=== PATIENT | female | born 1975 | race Caucasian/White ===

== ENCOUNTER 2017-09-17 14:52 | Emergency (ER) | payer OTHER ==
[2017-09-17 14:59] VITALS: BP 101/67
[2017-09-17] MEDS ORDERED: DEXAMETHASONE 10 MG/ML VIAL PO STA (15:12)
--- NOTE | 2017-09-17 15:15 | ED Physician Documentation ---
PD HPI URI - Stated complaint Stated Complaint: SORE THROAT - Chief complaint Chief Complaint: Heent - History obtained from History obtained from: Patient, Family - History of Present Illness Timing - onset: How many days ago (3) Timing duration: Days (3) Timing details: Gradual onset, Still present Associated symptoms: Ear pain, Nasal congestion, Rhinorrhea, Sore throat, Swollen nodes, Dry cough. No: Fever Contributing factors: No: Sick contact Improves by: Medication Similar symptoms before: Has not had sx before Recently seen: Not recently seen - Additional information Additional information: Previously healthy 42-year-old female has developed a cough and congestion about 3 days ago she is a sore throat and swollen lymph nodes is a bit of a cough as well. Review of Systems Constitutional: denies: Fever Eyes: denies: Decreased vision Ears: reports: Ear pain Nose: reports: Rhinorrhea / runny nose, Congestion Throat: reports: Sore throat Cardiac: denies: Chest pain / pressure, Palpitations Respiratory: reports: Cough. 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 - Present Medications Home Medications: Ambulatory Orders Medication Instructions Recorded Confirmed Azithromycin [Zithromax] 250 mg PO DAILY #6 tablet 09/17/17 - Allergies Allergies/Adverse Reactions: Allergies Allergy/AdvReac Type Severity Reaction Status Date / Time No Known Drug Allergies Allergy Verified 09/17/17 14:59 - Social History Does the pt smoke?: No Smoking Status: Never smoker Does the pt drink ETOH?: Yes Does the pt have substance abuse?: No PD ED PE NORMAL - Vitals Vital signs reviewed: Yes (normal ) - General General: Alert and oriented X 3, No acute distress, Well developed/nourished - HEENT HEENT: Atraumatic, PERRL, EOMI, Other (There is minimal inflamation of the right TM along the umbo and more inflammation on the left , pharynx is with 2+ tonsils. 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, No motor deficit, No sensory deficit, Normal speech Eye Opening: Spontaneous Motor: Obeys Commands Verbal: Oriented GCS Score: 15 - Psych Psych: Normal mood, Normal affect Results - Vitals Vitals: Vital Signs - 24 hr 09/17/17 14:57 Temperature 36.9 C Heart Rate 73 Respiratory 18 Rate Blood Pressure 101/67 O2 Saturation 98 Oxygen O2 Source Room air - Labs Labs: Laboratory Tests 09/17/17 15:08 Group A Strep Rapid Negative PD MEDICAL DECISION MAKING - ED course Complexity details: reviewed results, re-evaluated patient, considered differential, d/w patient, d/w family ED course: 42-year-old female with a sore throat cough has otitis on examination. She is administered dexamethasone 10 mg orally and we will put her on some azithromycin. Departure - Departure Disposition: 01 Home, Self Care Clinical Impression: Otitis media Qualifiers: Otitis media type: suppurative Chronicity: acute Laterality: bilateral Recurrence: not specified as recurrent Spontaneous tympanic membrane rupture: without spontaneous rupture Qualified Code(s): H66.003 - Acute suppurative otitis media without spontaneous rupture of ear drum, bilateral Condition: Stable Instructions: ED Otitis Media Acute Adult Follow-Up: Your, doctor [Other] Prescriptions: Azithromycin [Zithromax] 250 mg PO DAILY #6 tablet
== END 2017-09-17 16:11 | disposition home or self-care (01) ==
LOC: ED 14:52
DX: H66.003 Acute suppurative otitis media without spontaneous rupture of ear drum, bilateral (principal); J02.9 Acute pharyngitis, unspecified; R05 Cough
CPT/HCPCS: 87070; 87430; 99283

== ENCOUNTER 2019-01-07 10:12 | Emergency (ER) | payer OTHER ==
[2019-01-07 10:22] VITALS: BP 100/70
--- NOTE | 2019-01-07 11:19 | XRAY Report ---
Reason: L knee pain Procedure Date: 01/07/2019 Accession Number: [id number] / [id number] Procedure: XR - Knee 3 View LT CPT Code: FULL RESULT: EXAM: LEFT KNEE RADIOGRAPHY EXAM DATE: 01/07/2019 10:24 AM. CLINICAL HISTORY: L knee pain. COMPARISON: None. TECHNIQUE: 3 views. FINDINGS: Bones: Normal. No fractures or bone lesions. Joints: Trace joint effusion is seen. No subluxation. Soft Tissues: Normal. No soft tissue swelling. IMPRESSION: 1. No evidence for acute fracture or dislocation of the left knee. 2. Trace joint effusion is seen. RADIA
--- NOTE | 2019-01-07 11:43 | ED Physician Documentation ---
PD HPI LOWER EXT INJURY - Stated complaint Stated Complaint: L KNEE PX - Chief complaint Chief Complaint: Ext Problem - History obtained from History obtained from: Patient - History of Present Illness PD HPI LOW EXT INJURY LOCATION: Left, Knee Type of injury: Fall (fell down some steps, landing onto left knee but also with knee bent under/behind her. Pain with ROM and with walking. Pain mainly anterior and medial. No effusion. 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 : None HEENT: None Psych: None Musculoskeletal: None Derm: None - Past Surgical History 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 - Present Medications Home Medications: Ambulatory Orders Medication Instructions Recorded Confirmed Azithromycin [Zithromax] 250 mg PO DAILY #6 tablet 09/17/17 - Allergies Allergies/Adverse Reactions: Allergies Allergy/AdvReac Type Severity Reaction Status Date / Time No Known Drug Allergies Allergy Verified 09/17/17 14:59 - Social History Does the pt smoke?: Yes Smoking Status: Current every day smoker Does the pt drink ETOH?: Yes ETOH Use: Wine Does the pt have substance abuse?: No - POLST Patient has POLST: No PD ED PE NORMAL - Vitals Vital signs reviewed: Yes - General General: Alert and oriented X 3, Well developed/nourished - Derm Derm: Normal color, Warm and dry - Extremities Extremities: Other (left knee with tenderness medially and just lateral to kneecap. No pain nor laxity with cruciate testing. Medially hurting with valgus stress. No laxity. No effusion. ) - Neuro Neuro: No motor deficit, No sensory deficit Results - Vitals Vitals: Vital Signs - 24 hr 01/07/19 10:18 Temperature 36.4 C L Heart Rate 75 Respiratory 20 Rate Blood Pressure 100/70 O2 Saturation 100 Oxygen O2 Source Room air - Rads (name of study) left knee Radiology: Prelim report reviewed (no fractures), See rad report PD MEDICAL DECISION MAKING - ED course Complexity details: reviewed results, considered differential (knee exam seems c/w MCL strain. Less likely meniscal. ), d/w patient Departure - Departure Disposition: 01 Home, Self Care Clinical Impression: Fall down steps Qualifiers: Encounter type: initial encounter Qualified Code(s): W10.8XXA - Fall (on) (from) other stairs and steps, initial encounter Knee MCL sprain Qualifiers: Encounter type: initial encounter Laterality: left Qualified Code(s): S83.412A - Sprain of medial collateral ligament of left knee, initial encounter Knee contusion Qualifiers: Encounter type: initial encounter Laterality: left Qualified Code(s): S80.02XA - Contusion of left knee, initial encounter Condition: Stable Record reviewed to determine appropriate education?: Yes Instructions: ED Sprain Knee Follow-Up: Annie Crowley PA [Primary Care Provider] - [facility] [Provider Group] Comments: Your x-ray appears normal without any bony abnormality. Your injury is likely a combination of some bruising at the area of impact but may also be some strain of the MCL (medial collateral ligament). Less likely it would be some meniscal injury. I would anticipate improvement over the next week or so with guarded motion using a knee brace. Add crutches if needed for partial weightbearing for comfort but progressing weightbearing as okay with healing of these injuries. Use some anti-inflammatories such as naproxen or ibuprofen 2-3 times a day for the next week. Add Tylenol if needed for pain. Recheck if not improving well over the next week. He may even be 2 to 3 weeks before he have complete activity without any discomfort. Continue the knee brace for as long as it still hurting with activity. Discharge Date/Time: 01/07/19 12:49
[2019-01-07] MEDS ORDERED: IBUPROFEN 600 MG TABLET PO STA (12:34)
== END 2019-01-07 12:49 | disposition home or self-care (01) ==
LOC: ED 10:12
DX: S83.412A Sprain of medial collateral ligament of left knee, initial encounter (principal); W10.9XXA Fall (on) (from) unspecified stairs and steps, initial encounter; Y93.9 Activity, unspecified; Y92.009 Unspecified place in unspecified non-institutional (private) residence as the place of occurrence of the external cause; F17.200 Nicotine dependence, unspecified, uncomplicated
CPT/HCPCS: 99282; 99283

== ENCOUNTER 2019-04-05 12:28 | Outpatient (CLI) | payer OTHER ==
--- NOTE | 2019-04-05 13:41 | MRI Report ---
Reason: DERANGEMENT INTERNAL KNEE NOS Procedure Date: 04/05/2019 Accession Number: [id number] / [id number] Procedure: MRI - Knee LT W/O CPT Code: Final Report FULL RESULT: EXAM: LEFT KNEE MRI WITHOUT CONTRAST EXAM DATE: 04/05/2019 01:18 PM. CLINICAL HISTORY: Left knee pain. Previous fall. COMPARISON: KNEE 3 VIEW LT 01/07/2019 10:23 AM. TECHNIQUE: Multiplanar, multisequence T1-weighted and fluid-sensitive sequences of the knee without contrast. Other: None. FINDINGS: Bones and articular cartilage: No acute fracture or bone lesions. Articular cartilage is within normal limits. Patella deysi is present. Small subcentimeter subcortical cysts at the anteromedial aspect of the lateral tibial plateau. Medial Meniscus: The medial meniscus is intact. Lateral Meniscus: The lateral meniscus is intact. Cruciate Ligaments: The anterior and posterior cruciate ligaments are intact. Collateral Ligaments: The medial collateral and lateral collateral ligamentous structures are intact. Tendons: The quadriceps, patellar, semimembranosus, and popliteus tendons are unremarkable. Musculature: No edema or fatty atrophy. Other: No effusion. No popliteal cyst. No loose bodies. The medial and lateral retinacula are intact. The subcutaneous tissues and fat pads are unremarkable. IMPRESSION: 1. Small subcortical cysts at the lateral tibial plateau. 2. Patella deysi. 3. No ligament or meniscal tear. RADIA
== END 2019-04-05 12:29 | disposition home or self-care (01) ==
LOC: DI 12:28
PROVIDERS: ATTEND Physician Assistant
DX: M85.662 Other cyst of bone, left lower leg (principal); M22.8X2 Other disorders of patella, left knee

== ENCOUNTER 2020-07-26 11:35 | Emergency (ER) | payer OTHER ==
--- NOTE | 2020-07-26 12:28 | ED Physician Documentation ---
History of Present Illness - Stated complaint Stated Complaint: LFT FOOT INJURY - Chief complaint Chief Complaint: General - History obtained from History obtained from: Patient - History of Present Illness Timing: Today Pain level max: 6 Pain level now: 5 - Additonal information Additional information: Patient is a 45-year-old female who presents to the emergency department after rolling her left ankle today. This was in her driveway. Worse with walking, better with rest. She denies any other injuries to me. She states that her right knee and left hip were hurting but no longer hurt. No head, neck, back pain. 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 - Present Medications Home Medications: Ambulatory Orders Medication Instructions Recorded Confirmed Azithromycin [Zithromax] 250 mg PO DAILY #6 tablet 09/17/17 - Allergies Allergies/Adverse Reactions: Allergies Allergy/AdvReac Type Severity Reaction Status Date / Time seasonal Allergy Respiratory Uncoded 07/26/20 11:47 - Social History Does the pt smoke?: Yes Smoking Status: Current every day smoker Does the pt drink ETOH?: Yes Does the pt have substance abuse?: Yes Substance Use and Type: Marijuana - Immunizations Immunizations are current?: Yes - POLST Patient has POLST: No PD ED PE NORMAL - Vitals Vital signs reviewed: Yes - General General: Alert and oriented X 3, No acute distress - HEENT HEENT: Moist mucous membranes - Neck Neck: Supple, no meningeal sign - Derm Derm: Warm and dry - Extremities Extremities: Other (L ankle - Tender to palpation over the lateral malleolus. No swelling. No bruising. No tenderness over the remainder of the foot, proximal tibia/fibula. No other tenderness about the ankle. Neurovascularly intact) - Neuro Neuro: Alert and oriented X 3 - Psych Psych: Normal mood, Normal affect Results - Vitals Vitals: Vital Signs - 24 hr 07/26/20 11:41 Temperature 36.3 C L Heart Rate 88 Respiratory 18 Rate Blood Pressure 136/74 H O2 Saturation 99 Oxygen O2 Source Room air - Rads (name of study) L ankle xray Radiology: Prelim report reviewed, EMP read contemporaneously, See rad report (No acute fractures or dislocation.) PD MEDICAL DECISION MAKING - ED course Complexity details: reviewed results, re-evaluated patient, considered differential, d/w patient ED course: No acute findings on x-ray. Patient with an ankle sprain. Placed on an air splint for comfort. Declines crutches. Declines pain medication here or for home. Patient counseled regarding signs and symptoms for which I believe and urgent re-evaluation would be necessary. Patient with good understanding of and agreement to plan and is comfortable going home at this time This document was made in part using voice recognition software. While efforts are made to proofread this document, sound alike and grammatical errors may occur. Departure - Departure Disposition: 01 Home, Self Care Clinical Impression: Left ankle sprain Qualifiers: Encounter type: initial encounter Involved ligament of ankle: unspecified ligament Qualified Code(s): S93.402A - Sprain of unspecified ligament of left ankle, initial encounter Condition: Good Instructions: ED Sprain Ankle Follow-Up: Annie Crowley PA-C [Primary Care Provider] - Within 1 week Comments: Thankfully your x-ray does not show any acute abnormalities today. This should heal on its own. Use the air splint as needed for comfort. Return if you worsen.
--- NOTE | 2020-07-26 12:47 | XRAY Report ---
PROCEDURE: Ankle 3 View LT INDICATIONS: fall, L ankle pain TECHNIQUE: 3 views of the ankle were acquired. COMPARISON: None FINDINGS: Bones: No acute fractures or dislocations. Tiny well-corticated ossicle at the medial malleolus. An kle mortise is normally aligned. No suspicious bony lesions. Soft tissues: No tibiotalar joint effusion. Achilles tendon appears normal. IMPRESSION: No acute fracture or dislocation. Suspect prior traumatic injury at the medial malleolus. Reviewed by: Quinn Walters MD on 07/26/2020 11:46 AM CH[facility]STAL Approved by: Quinn Walters MD on 07/26/2020 11:46 AM CHRYSTAL Station ID: [id number]
[2020-07-26 13:12] VITALS: BP 114/88
== END 2020-07-26 13:18 | disposition home or self-care (01) ==
LOC: ED 11:35
DX: S93.402A Sprain of unspecified ligament of left ankle, initial encounter (principal); X50.1XXA Overexertion from prolonged static or awkward postures, initial encounter; Y92.007 Garden or yard of unspecified non-institutional (private) residence as the place of occurrence of the external cause; F17.200 Nicotine dependence, unspecified, uncomplicated
CPT/HCPCS: 99282; 99283

== ENCOUNTER 2020-10-14 12:41 | Outpatient (CLI) | payer OTHER ==
--- NOTE | 2020-10-14 14:58 | XRAY Report ---
PROCEDURE: Ankle 3 View LT INDICATIONS: LEFT ANKLE SPRAIN TECHNIQUE: 3 views of the ankle were acquired. COMPARISON: None FINDINGS: Bones: No fractures or dislocations. Ankle mortise is normally aligned. No suspicious bony lesions . Soft tissues: No tibiotalar joint effusion. Achilles tendon appears normal. IMPRESSION: No trauma found. Reviewed by: Tej Teixeira MD on 10/14/2020 2:56 PM PDT Approved by: Tej Teixeira MD on 10/14/2020 2:56 PM PDT Station ID: [id number]
== END 2020-10-14 12:42 | disposition home or self-care (01) ==
LOC: DI.N 12:41
PROVIDERS: ATTEND Physician Assistant Medical
DX: S93.492A Sprain of other ligament of left ankle, initial encounter (principal)

== ENCOUNTER → 2021-01-22 | Outpatient (CLI) | payer OTHER ==
[2021-01-22 18:40] LABS: BASOPHILS % (AUTO) 0.6 %; EOSINOPHILS # (AUTO) 0.2 10^3/uL (0.0-0.7); EOSINOPHILS % (AUTO) 2.8 %; HCT - HEMATOCRIT 45.8 % (37.0-47.0); LYMPHOCYTES # (AUTO) 2.1 10^3/uL (1.5-3.5); MEAN CORPUSCULAR HEMOGLOBIN 31.8 pg (27.0-31.0); MEAN CORPUSCULAR HGB CONC 32.8 g/dL (32.0-36.0); MEAN CORPUSCULAR VOLUME 97.2 fL (81.0-99.0); MONOCYTES # (AUTO) 0.7 10^3/uL (0.0-1.0); MONOCYTES % (AUTO) 10.9 %; NEUTROPHILS # (AUTO) 3.7 10^3/uL (1.5-6.6); NEUTROPHILS % (AUTO) 54.3 %; PLT - PLATELET COUNT 276 10^3/uL (130-450); RED BLOOD COUNT 4.71 10^6/uL (4.20-5.40); RED CELL DISTRIBUTION WIDTH 12.3 % (12.0-15.0); WHITE BLOOD COUNT 6.7 x10^3/uL (4.8-10.8)
[2021-01-22 20:21] LABS: FOLLICLE STIMULATING HORMONE 47.95 mIU/mL; FREE T4 (FREE THYROXINE) 0.85 ng/dL (0.58-1.64); LUTEINIZING HORMONE 24.83 mIU/mL; THYROID STIMULATING HORMONE 1.67 uIU/mL (0.34-5.60)
[2021-01-22 20:22] LABS: ALBUMIN 4.7 g/dL (3.2-5.5); ALBUMIN/GLOBULIN RATIO 1.5 (1.0-2.2); ALKALINE PHOSPHATASE 53 IU/L (42-121); ALT ALANINE AMINOTRANSFERASE 21 IU/L (10-60); AST ASPARTATE AMINOTRANSFERASE 21 IU/L (10-42); BILIRUBIN,TOTAL 0.7 mg/dL (0.2-1.0); BUN - BLOOD UREA NITROGEN 18 mg/dL (6-20); CALCIUM 9.5 mg/dL (8.5-10.3); CARBON DIOXIDE - CO2 27 mmol/L (21-32); CHLORIDE 102 mmol/L (101-111); CHOLESTEROL 283 mg/dL; CREATININE 0.8 mg/dL (0.4-1.0); GFR - MDRD 78 (>89); GLUCOSE 94 mg/dL (70-100); HDL CHOLESTEROL 71 mg/dL; LDL CHOLESTEROL,CALCULATED 187 mg/dL; LDL/HDL RATIO 2.6 (<4.4); POTASSIUM 4.8 mmol/L (3.5-5.0); SODIUM 137 mmol/L (135-145); TOTAL PROTEIN 7.8 g/dL (6.7-8.2); TRIGLYCERIDES 127 mg/dL; VLDL CHOLESTEROL 25 mg/dL
[2021-01-22 20:26] LABS: BILIRUBIN,URINE NEGATIVE (NEGATIVE); GLUCOSE, URINE (UA) NEGATIVE (NEGATIVE); KETONES,URINE (UA) NEGATIVE (NEGATIVE); LEUKOCYTE ESTERASE, URINE NEGATIVE (NEGATIVE); NITRITE,URINE NEGATIVE (NEGATIVE); OCCULT BLOOD,URINE MODERATE (NEGATIVE); PH,URINE 5.5 PH (5.0-7.5); PROTEIN,URINE NEGATIVE (NEGATIVE); UROBILINOGEN,URINE 0.2 (NORMAL) E.U./dL (NORMAL)
[2021-01-22 20:28] LABS: CLARITY,URINE CLOUDY (CLEAR)
[2021-01-22 20:43] LABS: RBC,URINE 0-5 /HPF (0-5); WBC,URINE 0-3 /HPF (0-5)
[2021-01-22 20:44] LABS: BACTERIA,URINE None Seen /HPF (None Seen); MUCUS,URINE Few Strands; SQUAMOUS EPITHELIAL CELL,UR FEW Squamous (<= Few)
[2021-01-22 21:47] LABS: ESTIMATED AVERAGE GLUCOSE 111 mg/dL (70-100); HEMOGLOBIN A1c% 5.5 % (4.27-6.07)
== END ==
LOC: LAB.WCP 08:00
PROVIDERS: ATTEND Nurse Practitioner
DX: R53.83 Other fatigue (principal); N95.1 Menopausal and female climacteric states; Z20.822 Contact with and (suspected) exposure to COVID-19
CPT/HCPCS: 36415; 80050; 80061; 81001; 83001; 83002; 83036; 83721; 84439; 87086

== ENCOUNTER 2022-02-15 11:10 | Outpatient (CLI) | payer OTHER ==
--- NOTE | 2022-02-15 16:08 | XRAY Report ---
PROCEDURE: Foot 2 View LT INDICATIONS: L FOOT PX TECHNIQUE: 2 views of the foot were acquired. COMPARISON: X-ray ankle 02/15/2022, x-ray ankle 10/14/2020 FINDINGS: Bones: No fractures or dislocations. No suspicious bony lesions. Soft tissues: No tibiotalar joint effusion. Achilles tendon appears normal. IMPRESSION: No visualized acute fracture or dislocation. However, occult injury cannot be excluded. Recommend marci rt interval imaging follow-up in 7-10 days as clinically indicated for additional evaluation. Reviewed by: Lucie Patel MD on 02/15/2022 4:06 PM PDT Approved by: Lucie Patel MD on 02/15/2022 4:06 PM PDT Station ID: [id number]
--- NOTE | 2022-02-15 16:08 | XRAY Report ---
PROCEDURE: Ankle 3 View LT INDICATIONS: L ANKLE PX TECHNIQUE: 3 views of the ankle were acquired. COMPARISON: X-ray ankle 02/15/2022, x-ray ankle 10/14/2020 FINDINGS: Bones: No fractures or dislocations. Ankle mortise is normally aligned. No suspicious bony lesions . Irregularity is noted at the medial malleolus suggestive of prior trauma as it is unchanged. Soft tissues: No tibiotalar joint effusion. Achilles tendon appears normal. IMPRESSION: No visualized acute fracture or dislocation. However, occult injury cannot be excluded. Recommend short interval imaging follow-up in 7-10 days as clinically indicated for additional evalua tion. Reviewed by: Lucie Patel MD on 02/15/2022 4:07 PM PDT Approved by: Lucie Patel MD on 02/15/2022 4:07 PM PDT Station ID: [id number]
== END 2022-02-15 11:11 | disposition home or self-care (01) ==
LOC: LAB.N 11:10 → DI.N 11:11
PROVIDERS: ATTEND Nurse Practitioner
DX: M25.572 Pain in left ankle and joints of left foot (principal); M21.612 Bunion of left foot

== ENCOUNTER 2022-04-03 10:36 | Emergency (ER) | payer OTHER ==
[2022-04-03 10:43] VITALS: BP 112/50
[2022-04-03 10:57] LABS: BILIRUBIN,URINE NEGATIVE (NEGATIVE); GLUCOSE, URINE (UA) NEGATIVE (NEGATIVE); KETONES,URINE (UA) NEGATIVE (NEGATIVE); LEUKOCYTE ESTERASE, URINE LARGE (NEGATIVE); NITRITE,URINE POSITIVE (NEGATIVE); OCCULT BLOOD,URINE LARGE (NEGATIVE); PROTEIN,URINE 100 mg/dL (NEGATIVE); UROBILINOGEN,URINE 1 (NORMAL) E.U./dL (NORMAL)
[2022-04-03 11:11] LABS: CLARITY,URINE SL. CLOUDY (CLEAR); HCG UR QUAL NEGATIVE
[2022-04-03 11:16] LABS: BACTERIA,URINE None Seen /HPF (None Seen); SQUAMOUS EPITHELIAL CELL,UR RARE Squamous (<= Few); WBC,URINE >25 /HPF (0-5)
--- NOTE | 2022-04-03 13:41 | ED Physician Documentation ---
History of Present Illness - Stated complaint Stated Complaint: FEMALE , SWOLLEN FACE - Chief complaint Chief Complaint: UTI - History obtained from History obtained from: Patient - Additonal information Additional information: This is a very pleasant 46-year-old female who presents with Dysuria, urgency, frequency since yesterday. She feels as though she has a urinary tract infection, no vaginal discharge, no fever chills, no nausea or vomiting. She also noticed some right facial swelling when she woke up today. She states it feels like somebody hit her in the side of the face but she denies any trauma, denies any dental pain or dental abscesses, no recent sinus symptoms other than mild runny nose, no nasal congestion or sinus pain, no eye drainage, no facial erythema. She did take some Pyridium [id number] for her urinary symptoms as well as some cranberry juice supplement And ibuprofen. She has never had any food or medication allergies in the past and denies any difficulty swallowing, difficulty breathing, tongue or oropharyngeal swelling, wheezing, or other signs of allergic reaction. 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 - Present Medications Home Medications: Ambulatory Orders Medication Instructions Recorded Confirmed Nitrofurantoin [Macrobid] 100 mg PO BID 5 Days #10 tab 04/03/22 - Allergies Allergies/Adverse Reactions: Allergies Allergy/AdvReac Type Severity Reaction Status Date / Time seasonal Allergy Respiratory Uncoded 04/03/22 10:43 - Social History Does the pt smoke?: Yes Smoking Status: Current every day smoker Does the pt drink ETOH?: Yes Does the pt have substance abuse?: Yes - Immunizations Immunizations are current?: Yes - POLST Patient has POLST: No PD ED PE NORMAL - Vitals Vital signs reviewed: Yes - General General: Alert and oriented X 3, No acute distress, Well developed/nourished - HEENT HEENT: Atraumatic, Moist mucous membranes, Pharynx benign, Dentition benign, Other (There is mild swelling on the right side of the face without focal fluid collection, slight swelling underneath the right eye primarily, no sinus tenderness, no dental abscesses.) - Neck Neck: Supple, no meningeal sign, No adenopathy, No JVD - Cardiac Cardiac: RRR, No murmur, No gallop - Respiratory Respiratory: No respiratory distress, Clear bilaterally - Abdomen Abdomen: Normal bowel sounds, Soft, Non tender, Non distended - Back Back: No CVA TTP - Derm Derm: Normal color, Warm and dry, No rash - Neuro Neuro: Alert and oriented X 3 Eye Opening: Spontaneous Motor: Obeys Commands Verbal: Oriented GCS Score: 15 - Psych Psych: Normal mood, Normal affect Results - Vitals Vitals: Vital Signs - 24 hr 04/03/22 10:39 Temperature 37.3 C Heart Rate 76 Respiratory 14 Rate Blood Pressure 112/50 L O2 Saturation 99 Oxygen O2 Source Room air - Labs Labs: Laboratory Tests 04/03/22 10:52 Urine Color YELLOW Urine Clarity SL. CLOUDY Urine pH 6.0 Ur Specific [place] 1.010 Urine Protein 100 H Urine Glucose (UA) NEGATIVE Urine Ketones NEGATIVE Urine Occult Blood LARGE H Urine Nitrite POSITIVE H Urine Bilirubin NEGATIVE Urine Urobilinogen 1 (NORMAL) Ur Leukocyte Esterase LARGE H Urine RBC 11-25 H Urine WBC >25 H Ur Squamous Epith Cells RARE Squamous Urine Bacteria None Seen Ur Microscopic Review INDICATED Urine Culture Comments INDICATED Urine HCG, Qual NEGATIVE PD MEDICAL DECISION MAKING - ED course Complexity details: reviewed results, re-evaluated patient, considered differential, d/w patient ED course: Very pleasant 46-year-old female who presented with concerns for a urinary tract infection. Her urinalysis was reviewed and she in fact does have signs of urinary tract infection, she has no CVAT, no fever or no systemic symptoms to suggest a complicated UTI. She also had some right facial swelling. There is mild facial swelling on physical exam but no signs of erythema, no focal fluid collection, no dental pain to suggest abscess, no other injuries. This may be related to medication intake or increased salt intake. She was advised to monitor, she may use a cool compress to help with swelling, may take at Benadryl as well. At this time she has no signs of anaphylactic reaction or Severe Angioedema. I did advised that if symptoms should recur in addition to any of the medication she is started taking or particular foods to stop those things, take Benadryl and return to the ER if worsening. Patient was discharged home in stable condition. Departure - Departure Disposition: 01 Home, Self Care Clinical Impression: Urinary tract infection Qualifiers: Urinary tract infection type: acute cystitis Hematuria presence: without hematuria Qualified Code(s): N30.00 - Acute cystitis without hematuria Condition: Good Instructions: ED UTI Cystitis Female Prescriptions: Nitrofurantoin [Macrobid] 100 mg PO BID 5 Days #10 tab Comments: As discussed, you have a urinary tract infection. We have sent this urine for culture and if it grows and you have bacteria not responsive to the antibiotics we put you on, we will give you a call. Please drink plenty of water and you may continue to take the urinary relief medication that you have. For your facial swelling, you may try a dose of Benadryl and utilize a cool compress. I do not see any infection or acute allergic reaction causing this but certainly if it recurred after taking any of the new medications even on or other food exposures I would recommend that you refrain from taking these again. If this worsens and you have any difficulty breathing or have swelling in your mouth or tongue or have difficulty swallowing, return to the ER.
== END 2022-04-03 13:44 | disposition home or self-care (01) ==
LOC: ED 10:36
DX: N30.00 Acute cystitis without hematuria (principal)
CPT/HCPCS: 81001; 81003; 81025; 87086; 99282; 99283

== ENCOUNTER 2022-04-15 08:00 | Outpatient (CLI) | payer OTHER ==
[2022-04-15 18:00] LABS: BILIRUBIN,URINE NEGATIVE (NEGATIVE); GLUCOSE, URINE (UA) NEGATIVE (NEGATIVE); KETONES,URINE (UA) NEGATIVE (NEGATIVE); LEUKOCYTE ESTERASE, URINE TRACE (NEGATIVE); NITRITE,URINE NEGATIVE (NEGATIVE); OCCULT BLOOD,URINE SMALL (NEGATIVE); PH,URINE 6.5 PH (5.0-7.5); PROTEIN,URINE NEGATIVE (NEGATIVE); UROBILINOGEN,URINE 0.2 (NORMAL) E.U./dL (NORMAL)
[2022-04-15 18:07] LABS: CLARITY,URINE HAZY (CLEAR)
[2022-04-15 18:21] LABS: BACTERIA,URINE Few /HPF (None Seen); SQUAMOUS EPITHELIAL CELL,UR MOD Squamous (<= Few); WBC,URINE >25 /HPF (0-5)
== END 2022-04-15 23:59 | disposition home or self-care (01) ==
LOC: LAB.WCP 08:00
PROVIDERS: ATTEND Nurse Practitioner
DX: N39.0 Urinary tract infection, site not specified (principal)
CPT/HCPCS: 81001; 87086

== ENCOUNTER 2023-01-20 08:22 | Outpatient (CLI) | payer OTHER ==
[2023-01-20 12:37] LABS: ALBUMIN 4.7 g/dL (3.2-5.5); ALKALINE PHOSPHATASE 53 IU/L (42-121); ALT ALANINE AMINOTRANSFERASE 28 IU/L (10-60); AST ASPARTATE AMINOTRANSFERASE 25 IU/L (10-42); BILIRUBIN,TOTAL 0.5 mg/dL (0.2-1.0); BUN - BLOOD UREA NITROGEN 13 mg/dL (6-20); CALCIUM 9.8 mg/dL (8.5-10.3); CARBON DIOXIDE - CO2 29 mmol/L (21-32); CHLORIDE 105 mmol/L (101-111); CHOL/HDL RATIO 4.1 (<4.4); CHOLESTEROL 278 mg/dL; CREATININE 0.8 mg/dL (0.6-1.3); GFR - MDRD 78 (>89); GLUCOSE 112 mg/dL (74-104); HDL CHOLESTEROL 67 mg/dL; LDL CHOLESTEROL,CALCULATED 168 mg/dL; LDL/HDL RATIO 2.5 (<4.4); POTASSIUM 4.3 mmol/L (3.5-4.5); SODIUM 140 mmol/L (135-145); TOTAL PROTEIN 7.1 g/dL (6.4-8.9); TRIGLYCERIDES 217 mg/dL (48-352); VLDL CHOLESTEROL 43 mg/dL
[2023-01-20 12:43] LABS: THYROID STIMULATING HORMONE 1.95 uIU/mL (0.34-5.60)
== END 2023-01-20 08:23 | disposition home or self-care (01) ==
LOC: LAB.N 08:22
PROVIDERS: ATTEND Nurse Practitioner
DX: E78.5 Hyperlipidemia, unspecified (principal); R53.83 Other fatigue; N95.9 Unspecified menopausal and perimenopausal disorder
CPT/HCPCS: 36415; 80053; 80061; 82670; 83001; 83002; 83721; 84443

== ENCOUNTER 2024-01-24 14:06 | Outpatient (CLI) | payer OTHER ==
[2024-01-24 17:40] LABS: BASOPHILS % (AUTO) 0.4 %; EOSINOPHILS # (AUTO) 0.3 10^3/uL (0.0-0.7); HCT - HEMATOCRIT 40.3 % (37.0-47.0); HGB - HEMOGLOBIN 13.6 g/dL (12.0-16.0); LYMPHOCYTES # (AUTO) 2.1 10^3/uL (1.5-3.5); LYMPHOCYTES % (AUTO) 25.1 %; MEAN CORPUSCULAR HEMOGLOBIN 32.2 pg (27.0-31.0); MEAN CORPUSCULAR HGB CONC 33.7 g/dL (32.0-36.0); MEAN CORPUSCULAR VOLUME 95.3 fL (81.0-99.0); MEAN PLATELET VOLUME 9.8 fL (7.9-10.8); MONOCYTES # (AUTO) 0.6 10^3/uL (0.0-1.0); MONOCYTES % (AUTO) 7.4 %; NEUTROPHILS # (AUTO) 5.3 10^3/uL (1.5-6.6); NEUTROPHILS % (AUTO) 63.4 %; PLT - PLATELET COUNT 287 10^3/uL (130-450); RED BLOOD COUNT 4.23 10^6/uL (4.20-5.40); RED CELL DISTRIBUTION WIDTH 12.6 % (12.0-15.0); WHITE BLOOD COUNT 8.4 x10^3/uL (4.8-10.8)
[2024-01-24 17:55] LABS: BILIRUBIN,URINE NEGATIVE (NEGATIVE); GLUCOSE, URINE (UA) NEGATIVE (NEGATIVE); KETONES,URINE (UA) NEGATIVE (NEGATIVE); LEUKOCYTE ESTERASE, URINE NEGATIVE (NEGATIVE); NITRITE,URINE NEGATIVE (NEGATIVE); OCCULT BLOOD,URINE MODERATE (NEGATIVE); PROTEIN,URINE NEGATIVE (NEGATIVE); UROBILINOGEN,URINE 0.2 (NORMAL) E.U./dL (NORMAL)
[2024-01-24 18:21] LABS: BACTERIA,URINE Many /HPF (None Seen); CLARITY,URINE CLEAR (CLEAR); RBC,URINE 0-5 /HPF (0-5); SQUAMOUS EPITHELIAL CELL,UR MANY Squamous (<= Few); WBC,URINE 0-3 /HPF (0-5)
[2024-01-24 19:01] LABS: ALBUMIN 4.4 g/dL (3.2-5.5); ALBUMIN/GLOBULIN RATIO 1.8 (1.0-2.2); ALKALINE PHOSPHATASE 54 IU/L (42-121); ALT ALANINE AMINOTRANSFERASE 16 IU/L (10-60); AST ASPARTATE AMINOTRANSFERASE 15 IU/L (10-42); BILIRUBIN,TOTAL 0.4 mg/dL (0.2-1.0); BUN - BLOOD UREA NITROGEN 16 mg/dL (6-20); CALCIUM 9.9 mg/dL (8.5-10.3); CARBON DIOXIDE - CO2 29 mmol/L (21-32); CHLORIDE 105 mmol/L (101-111); CHOL/HDL RATIO 4.1 (<4.4); CHOLESTEROL 259 mg/dL; CREATININE 0.9 mg/dL (0.6-1.3); GFR - MDRD 67 (>89); GLUCOSE 107 mg/dL (74-104); HDL CHOLESTEROL 63 mg/dL; LDL CHOLESTEROL,CALCULATED 146 mg/dL; LDL/HDL RATIO 2.3 (<4.4); POTASSIUM 4.1 mmol/L (3.5-4.5); SODIUM 139 mmol/L (135-145); TOTAL PROTEIN 6.9 g/dL (6.4-8.9); TRIGLYCERIDES 250 mg/dL; VLDL CHOLESTEROL 50 mg/dL
[2024-01-24 19:03] LABS: THYROID STIMULATING HORMONE 1.86 uIU/mL (0.34-5.60)
[2024-01-24 22:49] LABS: RHEUMATOID FACTOR NEGATIVE (Negative)
== END 2024-01-24 14:07 | disposition home or self-care (01) ==
LOC: LAB.N 14:06
PROVIDERS: ATTEND Nurse Practitioner
DX: E78.5 Hyperlipidemia, unspecified (principal); R53.83 Other fatigue; R31.21 Asymptomatic microscopic hematuria; M19.049 Primary osteoarthritis, unspecified hand
CPT/HCPCS: 36415; 80050; 80061; 81001; 83721; 86200; 86430; 87086